=== PATIENT | female | born 1985 | race Caucasian/White ===

== ENCOUNTER → 2016-10-31 | Outpatient (CLI) | payer BC ==
[~2016-10-31] MED LIST: ALDACTONE 25MG25 M1 PO; AMERGE1 MG PO; AMOXICILLIN 50500 MG PO; ATENOLOL25 MG PO; BCP; BENADRYL50 MG PO; BRINTELLIX10 PO; BUSPAR DIVIDOSE15 MG PO; BUSPAR10 MG PO; CAMILA0.35 MG PO; CEFTIN 250250 MG/TAB PO; CELEXA 20MG20 MG/TAB PO; DEPO-PROVE150 MG/1 M IM; DIAZEPAM10 MG PO; FLEXERIL5 MG PO; FOLIC ACID 11 MG/TA1; FOLIC ACID 40400 MCG PO; HCTZ 25MG25 MG PO; IRON FERROUS S325 MG PO; KLONOPIN 0.5MG0.5 MG PO; KLONOPIN 1MG1 MG PO; KLOR-CON 1010 MEQ PO; LAMICTAL150 MG PO; LEVBID0.375 MG PO; LEXAPRO20 MG PO; LOPRESSOR 550 MG/TAB PO; LUPRON5 MG/M2 SC; MACROBID 1100 MG/CAP; MAXALT MLT10 MG/TAB PO; MAXALT10 MG PO; MEDROL 4MG DOSPA4 MG PO; NEURONTIN300 MG/CAP PO; NEXIUM40 MG PO; PERCOCET 325 MG1 TA2 PO; PRENATAL1 TA6 PO; ROXICODONE 55 MG/TAB PO; SAFYRAL1 TAB PO; SEROQUEL XR300 MG PO; SEROQUEL XR50 MG PO; SEROQUEL400 MG PO; TOPAMAX50 MG PO; ULTRAM 50MG TAB50 MG PO; ZOFRAN 4MG T4 MG/TAB PO; ZOFRAN8 MG PO; ZOVIRAX400 MG PO; ZYPREXA 5MG5 MG PO; ZYRTEC 10MG10 MG PO
== END ==
LOC: BHSO 15:39
DX: F31.81 Bipolar II disorder (principal)

== ENCOUNTER 2016-12-21 08:40 | Emergency (ER) | payer BC ==
[~2016-12-21] VITALS: Ht 170.2 cm; Wt 80.9 kg
[~2016-12-21 08:40] MED LIST changes: -AMERGE1 MG PO; -FLEXERIL5 MG PO; -LEXAPRO20 MG PO; -MEDROL 4MG DOSPA4 MG PO; -NEURONTIN300 MG/CAP PO; -ROXICODONE 55 MG/TAB PO; -ULTRAM 50MG TAB50 MG PO
[2016-12-21 08:44] VITALS: BP 113/78; TEMP 97.5
[2016-12-21] MEDS ORDERED: FLEXERIL5 MG PO (09:03)
[2016-12-21] MEDS ORDERED: MEDROL 4MG DOSPA4 MG PO (09:03)
[2016-12-21] MEDS ORDERED: ROXICODONE 55 MG/TAB PO (09:03)
[2016-12-21] MEDS ORDERED: LEXAPRO20 MG PO (09:21)
[2016-12-21] MEDS ORDERED: KLONOPIN 0.5MG0.5 MG PO (09:21)
[2016-12-21 09:50] VITALS: PULSE 101
== END 2016-12-21 09:51 | disposition home or self-care (01) ==
LOC: COL.ER 08:40
DX: G89.29 Other chronic pain (principal); M54.5 Low back pain; M62.830 Muscle spasm of back
CPT/HCPCS: J1170; J2360

== ENCOUNTER 2017-01-06 10:36 | Emergency (ER) | payer BC ==
[~2017-01-06] VITALS: Ht 170.2 cm; Wt 82.7 kg
[~2017-01-06 10:36] MED LIST changes: +FLEXERIL5 MG PO; +LEXAPRO20 MG PO; +MEDROL 4MG DOSPA4 MG PO; +ROXICODONE 55 MG/TAB PO
[2017-01-06 13:00] VITALS: BP 147/82; PULSE 96; TEMP 96.9
== END 2017-01-06 13:18 | disposition home or self-care (01) ==
LOC: COL.ER 10:36
DX: M54.5 Low back pain (principal)
CPT/HCPCS: J1170; J3360

== ENCOUNTER 2017-01-24 18:38 | Emergency (ER) | payer BC ==
[~2017-01-24] VITALS: Ht 170.2 cm; Wt 84.1 kg
[2017-01-24] MEDS ORDERED: ZOFRAN8 MG PO (18:59)
[2017-01-24] MEDS ORDERED: ULTRAM 50MG TAB50 MG PO (18:59)
[2017-01-24 19:23] LABS: CALCIUM 10.1 mg/dL (8.4-10.2); CREATININE, serum 1.01 mg/dL (0.52-1.25); POTASSIUM 3.8 mmol/L (3.4-5.0)
[2017-01-24 20:33] VITALS: BP 120/91; PULSE 105
== END 2017-01-24 20:49 | disposition home or self-care (01) ==
LOC: COL.ER 18:38
PROVIDERS: Emergency Medicine
DX: E86.9 Volume depletion, unspecified (principal); R11.10 Vomiting, unspecified; R19.7 Diarrhea, unspecified
CPT/HCPCS: J1170; J2405; J7030

== ENCOUNTER 2017-01-25 15:55 | Emergency (ER) | payer BC ==
[~2017-01-25] VITALS: Ht 170.2 cm; Wt 81.8 kg
[~2017-01-25 15:55] MED LIST changes: +ULTRAM 50MG TAB50 MG PO
[2017-01-25 16:14] VITALS: BP 120/77; TEMP 98.2
[2017-01-25 18:06] VITALS: PULSE 94
== END 2017-01-25 18:18 | disposition home or self-care (01) ==
LOC: COL.ER 15:55
DX: K52.9 Noninfective gastroenteritis and colitis, unspecified (principal)
CPT/HCPCS: J1170; J1200; J2405; J7030

== ENCOUNTER 2017-04-13 17:20 | Emergency (ER) | payer BC ==
[~2017-04-13] VITALS: Ht 170.2 cm; Wt 84.1 kg
[2017-04-13 17:22] VITALS: BP 171/92; TEMP 98
[2017-04-13 19:19] VITALS: PULSE 112
== END 2017-04-13 19:20 | disposition home or self-care (01) ==
LOC: COL.ER 17:20
DX: M54.5 Low back pain (principal); M62.830 Muscle spasm of back; G89.29 Other chronic pain; R11.0 Nausea; R61 Generalized hyperhidrosis
CPT/HCPCS: J1170; J3360

== ENCOUNTER 2017-04-29 11:31 | Emergency (ER) | payer BC ==
[~2017-04-29] VITALS: Ht 170.2 cm; Wt 81.8 kg
[2017-04-29 11:34] VITALS: TEMP 97.8
[2017-04-29] MEDS ORDERED: NEURONTIN300 MG/CAP PO (11:48)
[2017-04-29] MEDS ORDERED: PERCOCET 325 MG1 TA2 PO (11:49)
[2017-04-29 13:00] VITALS: BP 99/68; PULSE 118
== END 2017-04-29 13:00 | disposition home or self-care (01) ==
LOC: COL.ER 11:31
DX: S93.401A Sprain of unspecified ligament of right ankle, initial encounter (principal); J45.909 Unspecified asthma, uncomplicated; G43.909 Migraine, unspecified, not intractable, without status migrainosus; F31.9 Bipolar disorder, unspecified; Z90.49 Acquired absence of other specified parts of digestive tract; Z90.89 Acquired absence of other organs; Z98.890 Other specified postprocedural states; X50.0XXA Overexertion from strenuous movement or load, initial encounter

== ENCOUNTER 2017-05-31 18:47 | Emergency (ER) | payer SELFPAY ==
[~2017-05-31] VITALS: Ht 170.2 cm; Wt 85.9 kg
[~2017-05-31 18:47] MED LIST changes: -AMERGE1 MG PO
[2017-05-31 18:51] VITALS: TEMP 99.1
[2017-05-31 19:54] LABS: BASO # 0.1 (0.0-0.2); EOS # 0.2 (0.0-0.7); EOS % 1.7 % (0-4.0); GRAN # 4.9 (1.4-6.5); GRAN % 55.9 % (42.2-75.2); HEMATOCRIT 39.7 % (37.0-47.0); HEMOGLOBIN 13.2 g/dl (12.5-16.0); LYMPH # 2.8 (1.2-3.4); LYMPH % 31.4 % (20.0-51.0); MEAN CELL VOLUME 93 fl (80.0-100.0); MEAN CORPUSCULAR HEMOGLOBIN 31 pg (27.0-31.0); MEAN CORPUSCULAR HGB CONC 33 g/dl (33.0-37.0); MEAN PLATELET VOLUME 10.1 fl (7.4-10.4); MONO # 0.8 (0.1-0.6); MONO % 8.5 % (1.7-9.3); PLATELET COUNT 297 K/mm3 (130-400); RED BLOOD COUNT 4.27 M/mm3 (4.10-5.30); WHITE BLOOD COUNT 8.8 K/mm3 (4.8-10.8)
[2017-05-31 20:09] LABS: CALCIUM 9.7 mg/dL (8.4-10.2); CREATININE, serum 0.97 mg/dL (0.52-1.25); POTASSIUM 3.8 mmol/L (3.4-5.0)
[2017-05-31 22:09] VITALS: BP 109/82; PULSE 109
== END 2017-05-31 22:11 | disposition home or self-care (01) ==
LOC: COL.ER 18:47
PROVIDERS: Emergency Medicine
DX: F41.9 Anxiety disorder, unspecified (principal); R52 Pain, unspecified; R00.0 Tachycardia, unspecified
CPT/HCPCS: J2060; J2405; J3360; J7030

== ENCOUNTER → 2017-05-31 | Outpatient (CLI) | payer SELFPAY ==
[~2017-05-31] MED LIST changes: +AMERGE1 MG PO; +NEURONTIN300 MG/CAP PO
== END ==
LOC: COL.RAD 09:40
DX: S93.411A Sprain of calcaneofibular ligament of right ankle, initial encounter (principal); S93.421A Sprain of deltoid ligament of right ankle, initial encounter; R60.0 Localized edema; M65.871 Other synovitis and tenosynovitis, right ankle and foot

== ENCOUNTER 2017-06-13 22:31 | Emergency (ER) | payer SELFPAY ==
[~2017-06-13] VITALS: Ht 170.2 cm; Wt 88.6 kg
[2017-06-13 22:39] VITALS: TEMP 97.1
[2017-06-13] MEDS ORDERED: AMERGE1 MG PO (22:44)
[2017-06-14 00:34] VITALS: BP 102/73; PULSE 84
== END 2017-06-14 01:11 | disposition home or self-care (01) ==
LOC: COL.ER 22:31
DX: G43.909 Migraine, unspecified, not intractable, without status migrainosus (principal); F31.9 Bipolar disorder, unspecified; J45.909 Unspecified asthma, uncomplicated; Z90.49 Acquired absence of other specified parts of digestive tract; Z90.89 Acquired absence of other organs
CPT/HCPCS: J0595; J1200; J2405; J7030; J8540

== ENCOUNTER → 2017-07-17 | Outpatient (CLI) | payer SELFPAY ==
[~2017-07-17] MED LIST changes: +AMERGE1 MG PO
== END ==
LOC: BHSO 10:17
DX: F31.73 Bipolar disorder, in partial remission, most recent episode manic (principal)

== ENCOUNTER 2018-01-04 19:22 | Emergency (ER) | payer SELFPAY ==
[~2018-01-04] VITALS: Ht 170.2 cm; Wt 81.8 kg
[~2018-01-04 19:22] MED LIST changes: +CIPRO 500MG TA500 MG PO; +LITHIUM CA150 MG/CAP PO; +PYRIDIUM200 M1 PO
[2018-01-04 19:25] VITALS: BP 134/94; TEMP 97.8
[2018-01-04] MEDS ORDERED: NEURONTIN300 MG/CAP PO (19:56)
[2018-01-04 20:56] VITALS: PULSE 90
== END 2018-01-04 21:00 | disposition home or self-care (01) ==
LOC: COL.ER 19:22
DX: G43.909 Migraine, unspecified, not intractable, without status migrainosus (principal); J45.909 Unspecified asthma, uncomplicated; F31.9 Bipolar disorder, unspecified; G89.29 Other chronic pain; M54.9 Dorsalgia, unspecified
CPT/HCPCS: J0595; J1200; J2765; J7030

== ENCOUNTER → 2018-02-27 | Outpatient (CLI) | payer SELFPAY | LOC: BHSO 11:24 | DX: F31.81 Bipolar II disorder (principal) | CPT/HCPCS: G0463 ==

== ENCOUNTER → 2018-07-04 | Outpatient (CLI) | payer OTHER, MEDICAID | LOC: BHSO 08:05 | DX: F31.81 Bipolar II disorder (principal) | CPT/HCPCS: G0463 ==

== ENCOUNTER 2018-08-01 14:14 | Emergency (ER) | payer OTHER, MEDICAID ==
[~2018-08-01] VITALS: Ht 170.2 cm; Wt 81.8 kg
[2018-08-01 14:16] VITALS: TEMP 98.3
[2018-08-01] MEDS ORDERED: SEROQUEL400 MG PO (14:22)
[2018-08-01] MEDS ORDERED: LEXAPRO20 MG PO (14:22)
[2018-08-01] MEDS ORDERED: LAMICTAL150 MG PO (14:23)
[2018-08-01] MEDS ORDERED: NEURONTIN300 MG/CAP PO (14:23)
[2018-08-01] MEDS ORDERED: ROXICODONE 55 MG/TAB PO (14:24)
[2018-08-01 15:08] LABS: BASO # 0.1 (0.0-0.2); BASO % 0.8 % (0.0-2.0); EOS # 0.5 (0.0-0.7); EOS % 7.2 % (0-4.0); GRAN # 2.4 (1.4-6.5); GRAN % 36.1 % (42.2-75.2); HEMATOCRIT 37.5 % (37.0-47.0); HEMOGLOBIN 12.1 g/dl (12.5-16.0); LYMPH # 3.1 (1.2-3.4); LYMPH % 47.6 % (20.0-51.0); MEAN CELL VOLUME 92 fl (80.0-100.0); MEAN CORPUSCULAR HEMOGLOBIN 30 pg (27.0-31.0); MEAN CORPUSCULAR HGB CONC 32 g/dl (33.0-37.0); MEAN PLATELET VOLUME 9.5 fl (7.4-10.4); MONO # 0.5 (0.1-0.6); MONO % 7.2 % (1.7-9.3); PLATELET COUNT 278 K/mm3 (130-400); RED BLOOD COUNT 4.06 M/mm3 (4.10-5.30); REDCELL DISTRIBUTION WIDTH-CV 16.4 % (11.5-14.5)
[2018-08-01 15:25] LABS: ALBUMIN 3.9 gm/dL (3.5-5.0); BILIRUBIN,TOTAL 0.2 mg/dL (0.0-1.0); C-REACTIVE PROTEIN 1.1 mg/dL (0.0-0.9); CALCIUM 9.3 mg/dL (8.4-10.2); CREATININE, serum 0.86 mg/dL (0.52-1.25); POTASSIUM 4.7 mmol/L (3.4-5.0); TOTAL PROTEIN 7.2 gm/dL (6.4-8.2)
[2018-08-01 16:05] VITALS: BP 122/76; PULSE 90
== END 2018-08-01 16:24 | disposition home or self-care (01) ==
LOC: COL.ER 14:14
PROVIDERS: Physician Assistant
DX: R05 Cough (principal); J45.909 Unspecified asthma, uncomplicated; F31.9 Bipolar disorder, unspecified; Z90.49 Acquired absence of other specified parts of digestive tract; Z90.89 Acquired absence of other organs

== ENCOUNTER 2018-09-12 18:13 | Emergency (ER) | payer OTHER, MEDICAID ==
[~2018-09-12] VITALS: Ht 170.2 cm; Wt 77.3 kg
[2018-09-12 18:16] VITALS: TEMP 98.5
[2018-09-12] MEDS ORDERED: FLEXERIL 1010 MG/TAB PO (19:37)
[2018-09-12] MEDS ORDERED: PERCOCET 325 MG1 TA2 PO (19:37)
[2018-09-12] MEDS ORDERED: ZOFRAN ODT4 MG PO (20:11)
[2018-09-12 20:21] VITALS: BP 134/96; PULSE 73
== END 2018-09-12 20:25 | disposition home or self-care (01) ==
LOC: COL.ER 18:13
DX: S13.4XXA Sprain of ligaments of cervical spine, initial encounter (principal); S20.219A Contusion of unspecified front wall of thorax, initial encounter; V43.52XA Car driver injured in collision with other type car in traffic accident, initial encounter
CPT/HCPCS: A9284

== ENCOUNTER 2018-10-04 16:02 | Emergency (ER) | payer OTHER, MEDICAID ==
[~2018-10-04] VITALS: Ht 170.2 cm; Wt 80.9 kg
[~2018-10-04 16:02] MED LIST changes: +FLEXERIL 1010 MG/TAB PO; +ZOFRAN ODT4 MG PO
[2018-10-04 16:08] VITALS: TEMP 98
[2018-10-04 16:31] LABS: COLLECTION METHOD CLEAN CATCH
[2018-10-04 16:42] LABS: MUCOUS Present /lpf; PH 6 (5-8); SQUAMOUS EPITHELIAL 20-50 /hpf; URINE APPEARANCE Cloudy; URINE BACTERIA Rare /hpf; URINE BILIRUBIN Negative (NEGATIVE); URINE BLOOD Negative (NEGATIVE); URINE COLOR Yellow; URINE GLUCOSE Negative (NEGATIVE); URINE KETONE Negative (NEGATIVE); URINE LEUKOCYTE ESTERASE 2+ (NEGATIVE); URINE NITRATE Negative (NEGATIVE); URINE PROTEIN(semi-quant) Negative (NEGATIVE); URINE UROBILINOGEN Negative (NEGATIVE)
[2018-10-04] MEDS ORDERED: LIDODERM 5% PATC1 EA TP (17:07)
[2018-10-04] MEDS ORDERED: FLEXERIL 1010 MG/TAB PO (17:07)
[2018-10-04 17:20] VITALS: BP 123/79; PULSE 95
== END 2018-10-04 17:25 | disposition home or self-care (01) ==
LOC: COL.ER 16:02
PROVIDERS: Physician Assistant
DX: G89.29 Other chronic pain (principal); M54.5 Low back pain; Z87.891 Personal history of nicotine dependence; Z90.49 Acquired absence of other specified parts of digestive tract; Z90.89 Acquired absence of other organs
CPT/HCPCS: J2360

== ENCOUNTER → 2018-10-18 | Outpatient (CLI) | payer OTHER, MEDICAID ==
[~2018-10-18] MED LIST changes: +LIDODERM 5% PATC1 EA TP
== END ==
LOC: BHSO 15:15
DX: F41.1 Generalized anxiety disorder (principal)
CPT/HCPCS: G0463

== ENCOUNTER → 2018-12-10 | Outpatient (CLI) | payer OTHER | LOC: COL.RAD 13:02 | DX: S50.01XD Contusion of right elbow, subsequent encounter (principal); S93.402D Sprain of unspecified ligament of left ankle, subsequent encounter ==

== ENCOUNTER 2019-01-08 13:32 | Emergency (ER) | payer OTHER, MEDICAID ==
[~2019-01-08] VITALS: Ht 170.2 cm; Wt 81.8 kg
[2019-01-08 14:18] VITALS: TEMP 98.6
[2019-01-08] MEDS ORDERED: ZOFRAN 4MG T4 MG/TAB PO (16:09)
[2019-01-08 16:32] VITALS: BP 122/80; PULSE 86
== END 2019-01-08 16:33 | disposition home or self-care (01) ==
LOC: COL.ER 13:32
DX: G43.909 Migraine, unspecified, not intractable, without status migrainosus (principal); F31.9 Bipolar disorder, unspecified; M79.7 Fibromyalgia; Z90.49 Acquired absence of other specified parts of digestive tract; Z87.442 Personal history of urinary calculi; Z88.5 Allergy status to narcotic agent
CPT/HCPCS: J1200; J2765; J3030; J7030

== ENCOUNTER → 2019-05-22 | Outpatient (CLI) | payer OTHER, MEDICAID | LOC: BHSO 08:37 | DX: F31.81 Bipolar II disorder (principal) | CPT/HCPCS: G0463 ==

== ENCOUNTER → 2019-11-28 | Outpatient (CLI) | payer OTHER, MEDICAID ==
[~2019-11-28] MED LIST changes: +HCTZ12.5TAB PO; +PRILOSEC 20MG20 MG PO
== END ==
LOC: BHSO 15:45
DX: F31.81 Bipolar II disorder (principal)
CPT/HCPCS: G0463

== ENCOUNTER 2019-12-13 10:44 | Emergency (ER) | payer SELFPAY ==
[~2019-12-13] VITALS: Ht 170.2 cm; Wt 82.7 kg
[~2019-12-13 10:44] MED LIST changes: -HCTZ12.5TAB PO; -PRILOSEC 20MG20 MG PO
[2019-12-13 11:37] LABS: BASO # 0.1 (0.0-0.2); EOS # 0.2 (0.0-0.7); EOS % 3.4 % (0-4.0); GRAN # 3.7 (1.4-6.5); GRAN % 60.3 % (42.2-75.2); HEMOGLOBIN 12.7 g/dl (12.5-16.0); LYMPH # 1.7 (1.2-3.4); LYMPH % 26.8 % (20.0-51.0); MEAN CELL VOLUME 91 fl (80.0-100.0); MEAN CORPUSCULAR HEMOGLOBIN 29 pg (27.0-31.0); MEAN CORPUSCULAR HGB CONC 32 g/dl (33.0-37.0); MEAN PLATELET VOLUME 9.3 fl (7.4-10.4); MONO # 0.5 (0.1-0.6); MONO % 7.9 % (1.7-9.3); PLATELET COUNT 377 K/mm3 (130-400); RED BLOOD COUNT 4.42 M/mm3 (4.10-5.30); REDCELL DISTRIBUTION WIDTH-CV 13.6 % (11.5-14.5)
[2019-12-13] MEDS ORDERED: ROXICODONE 55 MG/TAB PO (11:40)
[2019-12-13] MEDS ORDERED: HCTZ12.5TAB PO (11:40)
[2019-12-13 11:45] LABS: ALBUMIN 4.6 gm/dL (3.5-5.0); BILIRUBIN,TOTAL 0.4 mg/dL (0.0-1.0); C-REACTIVE PROTEIN 1.3 mg/dL (0.0-0.9); CALCIUM 9.6 mg/dL (8.4-10.2); CREATININE, serum 1.09 (0.52-1.25); POTASSIUM 3.6 mmol/L (3.4-5.0); TOTAL PROTEIN 8.1 gm/dL (6.4-8.2)
[2019-12-13 12:09] LABS: COLLECTION METHOD CLEAN CATCH
[2019-12-13] MEDS ORDERED: PRILOSEC 20MG20 MG PO (12:36)
[2019-12-13] MEDS ORDERED: ZOFRAN ODT4 MG PO (12:36)
[2019-12-13 12:47] LABS: SQUAMOUS EPITHELIAL 0-2 /hpf; URINE BACTERIA None Seen /hpf; URINE RBC None Seen /hpf
[2019-12-13 12:51] LABS: URINE APPEARANCE Clear; URINE COLOR Yellow
[2019-12-13 12:52] LABS: PH 6 (5-8); URINE BILIRUBIN Negative (NEGATIVE); URINE GLUCOSE Negative (NEGATIVE); URINE KETONE Negative (NEGATIVE); URINE NITRATE Negative (NEGATIVE); URINE PROTEIN(semi-quant) Negative (NEGATIVE); URINE UROBILINOGEN Negative (NEGATIVE)
[2019-12-13 12:53] LABS: URINE BLOOD Negative (NEGATIVE); URINE LEUKOCYTE ESTERASE Negative (NEGATIVE)
[2019-12-13 13:01] VITALS: BP 121/76; PULSE 88; TEMP 98
== END 2019-12-13 13:10 | disposition home or self-care (01) ==
LOC: COL.ER 10:44
PROVIDERS: Physician Assistant
DX: R42 Dizziness and giddiness (principal); R53.81 Other malaise; G43.909 Migraine, unspecified, not intractable, without status migrainosus; Z88.5 Allergy status to narcotic agent; Z88.8 Allergy status to other drugs, medicaments and biological substances; Z87.442 Personal history of urinary calculi
CPT/HCPCS: J2405; J7030

== ENCOUNTER → 2020-07-28 | Outpatient (CLI) | payer SELFPAY ==
[~2020-07-28] MED LIST changes: +HCTZ12.5TAB PO; +PRILOSEC 20MG20 MG PO
== END ==
LOC: BHSO 11:43
DX: F31.81 Bipolar II disorder (principal)
CPT/HCPCS: G0463